=== PATIENT | male | born 1995 | race Caucasian/White ===

== ENCOUNTER 2021-03-09 13:17 | Day surgery (SDC) | payer OTHER, MEDICAID ==
[~2021-03-09] VITALS: Ht 175.3 cm; Wt 65.2 kg
[2021-03-09] MEDS ORDERED: CHLORHEXIDINE 15 ML UDC PO ONE (14:00)
[2021-03-09] MEDS ORDERED: LACTATED RINGERS 1,000 ML IV SCH (14:00)
[2021-03-09 14:04] VITALS: BP 114/73
[2021-03-09] MEDS ORDERED: METOPROLOL PO (14:10)
[2021-03-09] MEDS ORDERED: ASPIRIN PO (14:10)
[2021-03-09] MEDS ORDERED: CHLORHEXIDINE 15 ML UDC ONE (14:18)
[2021-03-09] MEDS ORDERED: MIDAZOLAM 1 MG/ML, 2ML ONE (14:55)
[2021-03-09] MEDS ORDERED: VANCOMYCIN 1,000 MG ONE (14:56)
[2021-03-09] MEDS ORDERED: NEOSPORIN OINT, 15GM ONE (14:57)
[2021-03-09] MEDS ORDERED: FENTANYL PF 250 MCG/5ML ONE (15:16)
[2021-03-09] MEDS ORDERED: PROPOFOL 10 MG/ML, 20ML ONE (15:16)
[2021-03-09] MEDS ORDERED: CEFAZOLIN 1,000 MG ONE (15:16)
[2021-03-09] MEDS ORDERED: LABETALOL 5MG/ML, 20ML IV PRN (15:30)
[2021-03-09] MEDS ORDERED: ACETAMINOPHEN 325 MG TABLET PO PRN (15:30)
[2021-03-09] MEDS ORDERED: MEPERIDINE/PF 25MG/0.5ML IVPush PRN (15:30)
[2021-03-09] MEDS ORDERED: OXYcodone 5 MG/5 ML ORAL.SOL UDC PO PRN (15:30)
[2021-03-09] MEDS ORDERED: morphine SULFATE 10 MG/ML, 1ML IVPush PRN (15:30)
[2021-03-09] MEDS ORDERED: hydrALAzine 20 MG/ML, 1ML IV PRN (15:30)
[2021-03-09] MEDS ORDERED: ONDANSETRON 2MG/ML, 2ML IVPush PRN (15:30)
[2021-03-09] MEDS ORDERED: DEXAMETHASONE 4 MG/ML, 1ML ONE (16:05)
[2021-03-09] MEDS ORDERED: ONDANSETRON 2MG/ML, 2ML ONE (16:05)
[2021-03-09] MEDS ORDERED: MEPERIDINE/PF 50 MG/ML ONE (16:22)
[2021-03-09] MEDS ORDERED: FENTANYL PF 100 MCG/2ML ONE ×2 (17:09→17:32)
[2021-03-09] MEDS ORDERED: OXYcodone 5 MG/5 ML ORAL.SOL UDC ONE (17:09)
[2021-03-09] MEDS ORDERED: HYDROmorphone 1 MG/ML, 1ML INJ ONE (17:09)
[2021-03-09] MEDS: FENTANYL PF 100 MCG/2ML IV PRN ×3 (17:10→17:36)
[2021-03-09] MEDS: HYDROmorphone 1 MG/ML, 1ML INJ IVPush PRN ×3 (17:21→17:37)
[2021-03-09] MEDS ORDERED: HYDROmorphone 2 MG/ML, 1ML ONE (17:32)
== END 2021-03-09 18:40 | disposition home or self-care (01) ==
LOC: OR 13:17
PROVIDERS: ATTEND Orthopaedic Surgery
DX: S64.21XA Injury of radial nerve at wrist and hand level of right arm, initial encounter (principal); S64.11XA Injury of median nerve at wrist and hand level of right arm, initial encounter; S56.221A Laceration of other flexor muscle, fascia and tendon at forearm level, right arm, initial encounter; Z79.899 Other long term (current) drug therapy; W22.8XXA Striking against or struck by other objects, initial encounter; Y93.89 Activity, other specified; Y92.89 Other specified places as the place of occurrence of the external cause; Y99.8 Other external cause status
CPT/HCPCS: 12031; 64857; 64859; 93005; J0690; J1100; J1170; J2175; J2250; J2405; J2704; J3010; J7120; J3370